=== PATIENT | male | born 1980 | race Caucasian/White ===

== ENCOUNTER 2016-12-17 13:20 | Emergency (ER) | payer SELFPAY ==
[2016-12-17 17:32] LABS: HEMOGLOBIN 16.2 gm/dl (14.0-17.5); RED BLOOD COUNT 5.39 M/UL (4.20-5.50); WHITE BLOOD COUNT 15.6 K/UL (4.5-11.0)
[2016-12-17 17:57] LABS: BUN/CREATININE RATIO 16 (0-10)
== END 2016-12-17 19:21 | disposition home or self-care (01) ==
LOC: ER1 13:20
PROVIDERS: Family Medicine
DX: R51 Headache (principal); M54.2 Cervicalgia; R07.9 Chest pain, unspecified; R11.10 Vomiting, unspecified; Z98.1 Arthrodesis status
CPT/HCPCS: 70450; 71010; 80053; 82550; 82553; 83874; 84484; 85025; 86140; 93005; 96361; 96374; 96375; 99285; J1200; J2270; J2765; J7030